=== PATIENT | female | born 1995 | race Caucasian/White ===

== ENCOUNTER 2018-12-27 12:09 | Inpatient (IN) | payer MEDICAID, OTHER ==
[~2018-12-27] VITALS: Ht 154.9 cm; Wt 80.3 kg
[2018-12-27 12:48] VITALS: Ht 154.9 cm; Wt 80.3 kg
[2018-12-27 12:49] VITALS: BP 131/91
[2018-12-27] MEDS ORDERED: PREN1TAB71 PO (12:53)
--- NOTE | 2018-12-27 14:36 | HP ---
Date/Time of Note Date/Time of Note DATE: 12/27/18 TIME: 14:28 OB - History Hx of Present Free Text/Dictation 23 YO G1 with IUP at 25 weeks with EDC 04/09/2019 who was seen at [facility] clinic today. she had BP 135/91. had normal BPs earlier in , but had DBP of 80 previously. she reports both parents are taking medication for hypertension. she reports frequent headaches for the past few months and she blames her work as the cause of her headache. she reports persistent headache since yesterday. she denies visual changes or RUQ pain. she denies UC, LOF per vagina or vaginal bleeding. she reports good FM. Care: Good Care Ultrasounds: Normal mid trimester US Obstetrical Complications: None Medical Complications: None Past Family/Social History * Past Medical, Surgical, Family and Obstetric Histories reviewed from chart. OB Admission Exam Vital Signs Vital Signs Vital Signs Date Temp Pulse Resp B/P (MAP) Pulse Ox O2 O2 Flow FiO2 Time Delivery Rate 12/27/18 98.6 131/91 12:49 (104) Physical Exam HEENT: WNL Heart: Rhythm Normal Lungs: Clear, Equal Abdomen: WNL Extremities: Normal Reflexes: Normal Last 72 hours Lab Results CBC & BMP 12/27/18 13:24 Liver Function Test 12/27/18 13:24 Alanine Aminotransferase (ALT/SGPT) 16 Albumin 4.0 Alkaline Phosphatase 79 Aspartate Amino Transf (AST/SGOT) 25 Direct Bilirubin 0.00 Total Protein 7.5 OB Assessment/Plan Other Assessment: IUP at 25 weeks Elevated BP, needs to be evaluated for possible Preeclampsia Other plan: Dr. Kwan will consult. spoke to Dr. Kwna over the phone. see orders SALLY PALUMBO MD Dec 27, 2018 14:36
[2018-12-27] MEDS ORDERED: LABETALOL HCL 20MG INJ IV PRN (15:00)
[2018-12-27] MEDS ORDERED: LABETALOL HCL 20MG INJ IV ONE (15:00)
--- NOTE | 2018-12-27 15:17 | TRIAGE ---
OB Triage Datetime Report Generated by CPN: 12/27/2018 15:17 Datetime: 12/27/2018 15:05 Time of Arrival: 12/27/2018 11:04 EGA: 25.2 Arrived By: Ambulatory Arrived From: Dr. Office Chief Complaint: SENT FROM DR OFFICE FOR ELEVATED B/P Movement: Present Contractions: Denies/Absent Rupture of Membranes: Denies Vaginal Bleeding: None Vaginal Discharge: Denies Recent Sexual Intercouse: Denies Abdominal Trauma: Not Applicable Patient Complaints: None Time Provider Notified: 12/27/2018 14:30 Provider Notified: DR. PALUMBO Initial Plan: EFM, MARTINA MD Datetime: 12/27/2018 15:04 Heart Rate Comments: PATIENT SITTING IN CHAIR AT BEDSIDE Datetime: 12/27/2018 13:42 Heart Rate Comments: up to br Datetime: 12/27/2018 12:55 Assessment Type: Triage Maternal Assessment Level of Consciousness: Fully Conscious DTR's/Clonus: DTRs 2+; No Clonus Headache: Denies Blurred Vision: No Respiratory Effort: Unlabored; Regular Rhythm; Equal Expansion Breath Sounds, Left: Clear and Equal Breath Sounds, Right: Clear and Equal Nausea/Vomiting: Denies RUQ Epigastric Pain: Denies Lower Extremities Edema: None Degree: None Upper Extremities Edema: None Degree: None Facial Edema: None Fall Risk Assessment History of Falling: (0) No Secondary Diagnosis: (0) No Ambulatory Aid: (0) Bedrest/Nurse Assist IV Therapy: (0) No Gait: (0) Normal/Bedrest/Immobile Mental Status: (0) Oriented to Own Ability Fall Score: 0 Fall Risk Score Definition: No Risk: No action required
[2018-12-27] MEDS ORDERED: BETAMET NA PHOS/AC(6 MG/ML) 5ML INJ IM SCH (15:30)
[2018-12-27] MEDS: LACTATED RINGER'S 1,000 ML IV SCH (17:03)
[2018-12-27] MEDS: BETAMET NA PHOS/AC(6 MG/ML) 2 ML INJ SYG IM SCH (17:05)
[2018-12-28] MEDS: LACTATED RINGER'S 1,000 ML IV SCH ×3 (00:41→17:33)
--- NOTE | 2018-12-28 09:44 | QN ---
Documentation Comment Denies headache, visual changes, RUQ pain, UC, VB, LOF per vagina. reports good FM. BPs normal highest BP 120/85 Abdomen: soft, gravid, not tender Awaiting completion of 24 hour urine, 2nd dose of steroid and consult from SALLY Marcus MD Dec 28, 2018 09:44
[2018-12-28] MEDS: FERROUS SULFATE (EC) 325 MG TAB PO SCH (09:56)
[2018-12-28] MEDS: PRENATAL VITAMIN PO SCH (09:56)
[2018-12-28] MEDS: BETAMET NA PHOS/AC(6 MG/ML) 2 ML INJ SYG IM SCH (17:04)
--- NOTE | 2018-12-29 02:34 | CONS ---
DATE OF ADMISSION: 12/27/2018 DATE OF CONSULTATION: 12/28/2018 HISTORY OF PRESENT ILLNESS: The patient is 23-year-old primigravida at 25 weeks and 3 days, who was admitted yesterday secondary to some elevated blood pressures. In the hospital, her blood pressures have been mostly normal with few moderate range blood pressures. She has at admission had headache. However, she has been experiencing headache on and off throughout the which she attributes to stress of her job; otherwise, no symptoms. PAST MEDICAL HISTORY: Negative. PAST SURGICAL HISTORY: Negative. REVIEW OF SYSTEMS: All systems reviewed and negative except what is mentioned above. Blood pressure is currently 126/53. Physical examination deferred. heart tones are reassuring for the gestational age, very much interrupted and no contractions. LABORATORY VALUES: AST, ALT, creatinine and platelets are normal. UA showed trace protein. A 24-ho ur urine for protein is pending. ASSESSMENT: 1. Primigravida at 25 weeks and 3 days, currently with gestational hypertension, pending the results of the 24-hour urine for protein. 2. Chronic headache, which she attributes to stress of her job and currently, she does not have any headache as she has been staying in the hospital and she looks very relaxed. A 24-hour urine will be ending around 6:00 tonight. RECOMMENDATIONS: In-house management until the results of the 24-hour urine for protein is back. Af ter that if she remains stable, she can be discharged home with BPP weekly until 32 weeks and then tw ice weekly NST. That would be great if she is provided with a note for her job, so she can be on blanche e bed rest at home. Preeclampsia precautions were given. Dictated By: SOTO DANIELLE MD ST/RODNEY Conf#: [id number] DID#: [id number] CC: SALLY PALUMBO MD;*EndCC*
[2018-12-29] MEDS: LACTATED RINGER'S 1,000 ML IV SCH ×2 (03:45→06:47)
[2018-12-29] MEDS: PRENATAL VITAMIN PO SCH (08:46)
[2018-12-29] MEDS: FERROUS SULFATE (EC) 325 MG TAB PO SCH (08:46)
--- NOTE | 2018-12-29 18:21 | DS ---
Date/Time of Note Date/Time of Note DATE: 12/29/18 TIME: 18:15 Discharge Summary Admission/Discharge Info Admit Date/Time Dec 27, 2018 at 14:40 Discharge Date/Time 12/29/2018 Discharge Diagnosis IUP at 25 weeks Proteinuria, 24 hours urine 547 mg protein infrequent elevation in blood pressure Patient Condition: Good Consults Dr. Kwan Hx of Present Illness she had elevated BP at [facility]. she initially had headache, but headache resolved after resting and eating. she remained without headache, visual changes or RUQ pain. had normal labs except for 24 hour urine revealed 547 mg protein. Hospital Course she had elevated BP at [facility]. she initially had headache, but headache resolved after resting and eating. she remained without headache, visual changes or RUQ pain. had normal labs except for 24 hour urine revealed 547 mg protein. note to excuse from work given. PIH precautions d/w pt. Home Meds Reported Medications Vit No.130/Iron/FA ( Tablet) 1 Each Tablet, 1 EACH PO 12/27/18 Follow-up Plan weekly appointment at [facility] with Weekly appointment at L&D for BPP and BP check f/u with perinatologist Dr. Aniya TANG Primary Care Provider [facility] Time spent on discharge: > 30 minutes SALLY PALUMBO MD Dec 29, 2018 18:21
== END 2018-12-29 18:49 | disposition home or self-care (01) | DRG 833 ==
LOC: OBT 12:09 → L-D 12:11 → OBT 14:40 → PP1 16:34
PROVIDERS: ADMIT Specialist; ATTEND Specialist
DX: O26.892 Other specified pregnancy related conditions, second trimester (principal); R03.0 Elevated blood-pressure reading, without diagnosis of hypertension; R51 Headache; Z3A.25 25 weeks gestation of pregnancy
CPT/HCPCS: 76815; 80053; 80307; 81003; 82575; 84156; 84560; 85025; G0463; J0702; J7120

== ENCOUNTER 2019-01-02 09:31 | Outpatient (CLI) | payer OTHER ==
[~2019-01-02] VITALS: Ht 157.5 cm; Wt 80.2 kg
[~2019-01-02 09:31] MED LIST: PREN1TAB71 PO
[2019-01-02 09:40] VITALS: Ht 157.5 cm; Wt 80.2 kg
--- NOTE | 2019-01-02 12:52 | PN ---
Triage Information Date/Time Reason for visit: for PIH panel and R%/o preeclampsia Weeks of Gestation 26+ /Para n/a Diabetes: none Hypertention: none Objective Heart Rate: 140's Contractions: None Results/Medications Result Diagram: 01/02/19 1029 01/02/19 1029 Results 24 hrs Laboratory Tests Test 01/02/19 10:09 01/02/19 10:29 01/02/19 11:53 Urine Color COLORLESS Urine Clarity CLEAR Urine pH 7.0 Urine Specific [place] 1.001 L Urine Ketones NEGATIVE Urine Nitrite NEGATIVE Urine Bilirubin NEGATIVE Urine Urobilinogen NEGATIVE Urine Leukocyte Esterase NEGATIVE Urine Microscopic RBC 0 Urine Microscopic WBC 0 Urine Hemoglobin 2+ H Urine Glucose NEGATIVE Urine Total Protein NEGATIVE White Blood Count 10.9 #H Red Blood Count 3.99 L Hemoglobin 12.6 Hematocrit 36.9 L Mean Corpuscular Volume 92.5 Mean Corpuscular Hemoglobin 31.6 Mean Corpuscular Hemoglobin Concent 34.1 Red Cell Distribution Width 12.2 Platelet Count 254 Mean Platelet Volume 9.6 Immature Granulocytes % 3.200 H Neutrophils % 73.1 Lymphocytes % 16.1 Monocytes % 7.0 Eosinophils % 0.2 Basophils % 0.4 Nucleated Red Blood Cells % 0.0 Immature Granulocytes # 0.350 H Neutrophils # 7.9 H Lymphocytes # 1.8 Monocytes # 0.8 Eosinophils # 0.0 Basophils # 0.0 Nucleated Red Blood Cells # 0.0 Prothrombin Time 11.9 Prothrombin Time Ratio 0.9 INR International Normalized Ratio 0.87 Activated Partial Thromboplast Time 25.2 Sodium Level 138 Potassium Level 4.5 Chloride Level 102 Carbon Dioxide Level 27 Anion Gap 9 Blood Urea Nitrogen 8 Creatinine 0.39 L Est Glomerular Filtrat Rate mL/min > 60 Glucose Level 79 Uric Acid 2.7 L Calcium Level 9.1 Total Bilirubin 0.1 L Direct Bilirubin 0.00 Indirect Bilirubin 0.1 Aspartate Amino Transf (AST/SGOT) 16 Alanine Aminotransferase (ALT/SGPT) 12 L Alkaline Phosphatase 69 Total Protein 7.2 Albumin 3.8 Globulin 3.40 H Albumin/Globulin Ratio 1.11 Fibronectin NEGATIVE Disposition: Discharge Assessment/Plan Urine culture sent No urinary symptoms PIH panel reviewed Blood pressures WNL Questions answered Precautions discussed Follow up with provider SILVIA WOODWARD M.D. Jan 02, 2019 12:52
== END 2019-01-02 12:50 | disposition home or self-care (01) ==
LOC: L-D 09:31 → OBT 09:31
PROVIDERS: ATTEND Specialist
DX: O13.2 Gestational [pregnancy-induced] hypertension without significant proteinuria, second trimester (principal); Z3A.26 26 weeks gestation of pregnancy
CPT/HCPCS: 76815; 76817; 80053; 81001; 82731; 84560; 85025; 85610; 85730; Z7500; G0463

== ENCOUNTER 2019-01-08 10:26 | Outpatient (CLI) | payer OTHER ==
[~2019-01-08] VITALS: Ht 157.5 cm; Wt 80.7 kg
[2019-01-08 10:35] VITALS: Ht 157.5 cm; Wt 80.7 kg
[2019-01-08 10:36] VITALS: BP 125/81; PULSE 98; RESP 17
--- NOTE | 2019-01-08 14:24 | HP ---
Date/Time of Note Date/Time of Note DATE: 01/08/19 TIME: 14:17 OB - History Hx of Present Free Text/Dictation 23 YO G1 with IUP at 27 weeks. she is here for f/u on preeclampsia without severe features. she denies headache, visual changes or RUQ pain at this time, but she reports she has headaches every week which resolves with just resting. she reports good FM. She denies loss of fluid per vagina or vaginal bleeding or UCs. she was seen in L&D about 2 weeks ago and she was evaluated by Dr. Kwan. the plan is weekly BPP and labs until 32 weeks. she is aware of PIH precautions. Care: Good Care Ultrasounds: Normal mid trimester US Obstetrical Complications: None Medical Complications: None Past Family/Social History * Past Medical, Surgical, Family and Obstetric Histories reviewed from chart. OB Admission Exam Vital Signs Vital Signs Vital Signs Date Temp Pulse Resp B/P (MAP) Pulse Ox O2 O2 Flow FiO2 Time Delivery Rate 01/08/19 98.1 98 17 125/81 Room Air 10:36 (96) Physical Exam HEENT: WNL Heart: Rhythm Normal Lungs: Clear, Equal Abdomen: WNL Extremities: Normal Reflexes: Normal Last 72 hours Lab Results CBC & BMP 01/08/19 10:51 Liver Function Test 01/08/19 10:51 Alanine Aminotransferase (ALT/SGPT) 10 L Albumin 3.6 Alkaline Phosphatase 70 Aspartate Amino Transf (AST/SGOT) 17 Direct Bilirubin 0.00 Total Protein 6.8 OB Assessment/Plan Other Assessment: IUP at 27 weeks Mild Preeclampsia Other plan: february d/c home and return in one week SALLY PALUMBO MD Jan 08, 2019 14:24
== END 2019-01-08 14:35 | disposition home or self-care (01) ==
LOC: L-D 10:26 → OBT 10:26
PROVIDERS: ATTEND Specialist
DX: O14.92 Unspecified pre-eclampsia, second trimester (principal); Z3A.27 27 weeks gestation of pregnancy
CPT/HCPCS: 76818; 80053; 81001; 84560; 85025; 85384; 85610; 85730; Z7500; G0463

== ENCOUNTER 2019-02-23 10:50 | Outpatient (CLI) | payer OTHER ==
[~2019-02-23] VITALS: Ht 154.9 cm; Wt 88.3 kg
[2019-02-23 11:18] VITALS: BP 130/76; PULSE 102; RESP 18; Ht 154.9 cm; Wt 88.3 kg
--- NOTE | 2019-02-23 14:30 | HP ---
Date/Time of Note Date/Time of Note DATE: 02/23/19 TIME: 14:26 OB - History Hx of Present Free Text/Dictation 23 YO G1 with IUP at 33.4 weeks with Preeclampsia. she desires outpatient management. today in NST office she reported visual changes that happened for few seconds 3 days ago and not since then. At this time she denies headache, visual changes or RUQ. 3 days ago she was spots for 3 seconds one time only. she denies UC, LOF per vagina or vaginal bleeding. she reports good FM. PIH labs are normal. Care: Good Care Ultrasounds: Normal mid trimester US Obstetrical Complications: Pre-eclampsia Medical Complications: None Past Family/Social History * Past Medical, Surgical, Family and Obstetric Histories reviewed from chart. OB Admission Exam Vital Signs Vital Signs Vital Signs Date Temp Pulse Resp B/P (MAP) Pulse Ox O2 O2 Flow FiO2 Time Delivery Rate 02/23/19 98.3 102 18 130/76 11:18 (94) Physical Exam HEENT: WNL Heart: Rhythm Normal Lungs: Clear, Equal Abdomen: WNL Extremities: Normal Reflexes: Normal Last 72 hours Lab Results CBC & BMP 02/23/19 12:20 Liver Function Test 02/23/19 12:20 Alanine Aminotransferase (ALT/SGPT) 8 L Albumin 3.6 Alkaline Phosphatase 120 Aspartate Amino Transf (AST/SGOT) 19 Direct Bilirubin 0.00 Total Protein 6.8 OB Assessment/Plan Other Assessment: IUP at 33.4 week, Preeclampsia Other plan: continue with outpatient management SALLY PALUMBO MD February 23, 2019 14:30
--- NOTE | 2019-02-23 17:11 | TRIAGE ---
OB Triage Datetime Report Generated by CPN: 02/23/2019 17:10 Datetime: 02/23/2019 13:33 Stage of : OB Triage Datetime: 02/23/2019 13:31 Stage of : OB Triage Datetime: 02/23/2019 12:53 Labor Evaluation Frequency: 0 Monitor Mode: External Pattern: Normal: <= 5 Contractions in 10 Minutes Resting Tone [place]: Relaxed Heart Rate FHR Baseline Rate: 145 Monitor Mode: External US Variability: Moderate 6-25 bpm Accelerations: 10X10 Decelerations: None Category: Category I Pain Assessment Pain Scale: 0 Pain Presence: None/Denies Pain Type: N/A Pain Goal: 3 Pain Relief Measures: Comfort Measures Datetime: 02/23/2019 12:28 Labor Evaluation Frequency: 0 Monitor Mode: External Pattern: Normal: <= 5 Contractions in 10 Minutes Resting Tone [place]: Relaxed Heart Rate FHR Baseline Rate: 155 Monitor Mode: External US Variability: Moderate 6-25 bpm Decelerations: None Category: Category I Pain Assessment Pain Scale: 0 Pain Presence: None/Denies Pain Type: N/A Pain Goal: 3 Pain Relief Measures: Comfort Measures Datetime: 02/23/2019 11:42 Labor Evaluation Frequency: 0 Monitor Mode: External Pattern: Normal: <= 5 Contractions in 10 Minutes Resting Tone [place]: Relaxed Heart Rate FHR Baseline Rate: 155 Monitor Mode: External US Variability: Moderate 6-25 bpm Accelerations: 10X10 Decelerations: None Pain Assessment Pain Scale: 0 Pain Presence: None/Denies Pain Type: N/A Pain Goal: 3 Pain Relief Measures: Comfort Measures Datetime: 02/23/2019 11:24 Stage of : OB Triage Datetime: 02/23/2019 11:14 Stage of : OB Triage Assessment Type: Triage Maternal Assessment Level of Consciousness: Fully Conscious DTR's/Clonus: DTRs 2+; No Clonus Headache: Denies Blurred Vision: No Respiratory Effort: Unlabored; Regular Rhythm; Equal Expansion Breath Sounds, Left: Clear and Equal Breath Sounds, Right: Clear and Equal Nausea/Vomiting: Denies RUQ Epigastric Pain: Denies Facial Edema: None Temperature Route: Axillary Fall Risk Assessment History of Falling: (0) No Secondary Diagnosis: (0) No Ambulatory Aid: (0) Bedrest/Nurse Assist IV Therapy: (0) No Gait: (0) Normal/Bedrest/Immobile Mental Status: (0) Oriented to Own Ability Fall Score: 0 Fall Risk Score Definition: No Risk: No action required Labor Evaluation Frequency: 0 Monitor Mode: External Pattern: Normal: <= 5 Contractions in 10 Minutes Resting Tone [place]: Relaxed Heart Rate FHR Baseline Rate: 150 Monitor Mode: External US Variability: Moderate 6-25 bpm Decelerations: None Category: Category I Pain Assessment Pain Scale: 0 Pain Presence: None/Denies Pain Type: N/A Pain Goal: 3 Pain Relief Measures: Comfort Measures Datetime: 02/23/2019 11:12 Time of Arrival: 02/23/2019 10:46 EGA: 33.4 Arrived By: Ambulatory Arrived From: Home Chief Complaint: SENT FROM NST FROM VISUAL DISTURBANCES, DENIES H/A, BLURRY VISION, OR EPIGASTRIC P AIN. DENIES LEAKING, BLEEDING OR UC'S Movement: Present Contractions: Denies/Absent Rupture of Membranes: Denies Vaginal Bleeding: None Vaginal Discharge: Denies Recent Sexual Intercouse: Denies Abdominal Trauma: Not Applicable Patient Complaints: Visual Disturbance Time Provider Notified: 02/23/2019 11:24 Provider Notified: LINWOOD Initial Plan: MONITOR, PIH PANEL Datetime: 02/23/2019 10:59 EGA: 27.0 Datetime: 01/08/2019 14:12 Stage of : OB Triage Datetime: 01/08/2019 13:22 Stage of : OB Triage Labor Evaluation Frequency: 0 Monitor Mode: External Pattern: Normal: <= 5 Contractions in 10 Minutes Resting Tone [place]: Relaxed Heart Rate FHR Baseline Rate: 145 Monitor Mode: External US Variability: Moderate 6-25 bpm Accelerations: 15X15 Decelerations: None Category: Category I Datetime: 01/08/2019 12:35 Stage of : OB Triage Labor Evaluation Frequency: 0 Monitor Mode: External Pattern: Normal: <= 5 Contractions in 10 Minutes Resting Tone [place]: Relaxed Heart Rate FHR Baseline Rate: 145 Monitor Mode: External US Variability: Moderate 6-25 bpm Accelerations: 15X15 Decelerations: None Category: Category I Datetime: 01/08/2019 10:34 Maternal Assessment Level of Consciousness: Fully Conscious DTR's/Clonus: DTRs 2+; No Clonus Headache: Denies Blurred Vision: No Respiratory Effort: Unlabored; Regular Rhythm; Equal Expansion Breath Sounds, Left: Clear and Equal Breath Sounds, Right: Clear and Equal Nausea/Vomiting: Denies RUQ Epigastric Pain: Denies Facial Edema: None Temperature Route: Axillary Fall Risk Assessment History of Falling: (0) No Secondary Diagnosis: (0) No Ambulatory Aid: (0) Bedrest/Nurse Assist IV Therapy: (0) No Gait: (0) Normal/Bedrest/Immobile Mental Status: (0) Oriented to Own Ability Fall Score: 0 Fall Risk Score Definition: No Risk: No action required Datetime: 01/08/2019 10:33 Time of Arrival: 01/08/2019 10:34 EGA: 27.0 Arrived By: Ambulatory Arrived From: Home Chief Complaint: pih labs Movement: Present Contractions: Denies/Absent Rupture of Membranes: Denies Vaginal Bleeding: None Vaginal Discharge: Denies Recent Sexual Intercouse: Denies Abdominal Trauma: Not Applicable Patient Complaints: Other Time Provider Notified: 01/08/2019 13:20 Provider Notified: DR. PALUMBO Initial Plan: call MD, MONITORS APPLIED Datetime: 01/08/2019 10:32 Comments: MONITORS APPLIED Datetime: 01/02/2019 12:20 Stage of : OB Triage Maternal Assessment Level of Consciousness: Fully Conscious DTR's/Clonus: DTRs 1+ Headache: Denies Breath Sounds, Left: Clear and Equal Breath Sounds, Right: Clear and Equal Nausea/Vomiting: Denies RUQ Epigastric Pain: Denies Labor Evaluation Frequency: NONE Monitor Mode: External Resting Tone [place]: Relaxed Heart Rate FHR Baseline Rate: 145 Monitor Mode: External US Variability: Moderate 6-25 bpm Accelerations: 15X15 Decelerations: None Category: Category I Pain Assessment Pain Scale: 0 Pain Presence: None/Denies Pain Type: N/A Pain Goal: 3 Datetime: 01/02/2019 12:00 Stage of : OB Triage Maternal Assessment Level of Consciousness: Fully Conscious DTR's/Clonus: DTRs 1+ Headache: Denies Breath Sounds, Left: Clear and Equal Breath Sounds, Right: Clear and Equal Nausea/Vomiting: Denies RUQ Epigastric Pain: Denies Labor Evaluation Frequency: NONE Monitor Mode: External Resting Tone [place]: Relaxed Heart Rate FHR Baseline Rate: 145 Monitor Mode: External US Variability: Moderate 6-25 bpm Accelerations: 15X15 Decelerations: None Category: Category I Pain Assessment Pain Scale: 0 Pain Presence: None/Denies Pain Type: N/A Pain Goal: 3 Datetime: 01/02/2019 11:00 Stage of : OB Triage Maternal Assessment Level of Consciousness: Fully Conscious DTR's/Clonus: DTRs 1+ Headache: Denies Breath Sounds, Left: Clear and Equal Breath Sounds, Right: Clear and Equal Nausea/Vomiting: Denies RUQ Epigastric Pain: Denies Labor Evaluation Frequency: NONE Monitor Mode: External Resting Tone [place]: Relaxed Heart Rate FHR Baseline Rate: 145 Monitor Mode: External US Variability: Moderate 6-25 bpm Accelerations: 15X15 Decelerations: None Pain Assessment Pain Scale: 0 Pain Presence: None/Denies Pain Type: N/A Pain Goal: 3 Datetime: 01/02/2019 10:30 Maternal Assessment Level of Consciousness: Fully Conscious DTR's/Clonus: DTRs 1+ Headache: Denies Blurred Vision: No Respiratory Effort: Unlabored Breath Sounds, Left: Clear and Equal Breath Sounds, Right: Clear and Equal Nausea/Vomiting: Denies RUQ Epigastric Pain: Denies Facial Edema: None Labor Evaluation Frequency: NONE Monitor Mode: External Resting Tone [place]: Relaxed Heart Rate FHR Baseline Rate: 145 Monitor Mode: External US Variability: Moderate 6-25 bpm Accelerations: 15X15 Decelerations: None Category: Category I Pain Assessment Pain Scale: 0 Pain Presence: None/Denies Pain Type: N/A Pain Goal: 3 Datetime: 01/02/2019 09:35 Assessment Type: Triage Maternal Assessment Level of Consciousness: Fully Conscious DTR's/Clonus: DTRs 2+; No Clonus Headache: Denies Blurred Vision: No Respiratory Effort: Unlabored; Regular Rhythm; Equal Expansion Breath Sounds, Left: Clear and Equal Breath Sounds, Right: Clear and Equal Nausea/Vomiting: Denies RUQ Epigastric Pain: Denies Lower Extremities Edema: None Degree: None Upper Extremities Edema: None Degree: None Facial Edema: None Fall Risk Assessment History of Falling: (0) No Secondary Diagnosis: (0) No Ambulatory Aid: (0) Bedrest/Nurse Assist IV Therapy: (0) No Gait: (0) Normal/Bedrest/Immobile Mental Status: (0) Oriented to Own Ability Fall Score: 0 Fall Risk Score Definition: No Risk: No action required Datetime: 01/02/2019 09:23 Time of Arrival: 01/02/2019 09:23 EGA: 26.1 Arrived By: Ambulatory Arrived From: Home Chief Complaint: PT CAME IN FOR NST AND BPP FOR PREECLAMPSIA AND STATES THAT SHE WAS SPOTTING TODAY THIS AM PINK BLOOD Movement: Present Contractions: Denies/Absent Rupture of Membranes: Denies Vaginal Bleeding: None Vaginal Discharge: Denies Recent Sexual Intercouse: Denies Abdominal Trauma: Not Applicable Patient Complaints: Other Additional Patient Complaints: NONE Initial Plan: NST AND BPP Datetime: 12/29/2018 16:35 Stage of : Antepartum Maternal Assessment Level of Consciousness: Fully Conscious Headache: Denies Blurred Vision: No Respiratory Effort: Unlabored Nausea/Vomiting: Denies Resting Tone [place]: Relaxed Pain Presence: None/Denies Datetime: 12/29/2018 16:28 Maternal Assessment Level of Consciousness: Fully Conscious Headache: Denies Blurred Vision: No Respiratory Effort: Unlabored Nausea/Vomiting: Denies Pain Presence: None/Denies Datetime: 12/29/2018 16:27 Monitor Mode: External US Datetime: 12/29/2018 16:01 Stage of : Antepartum Maternal Assessment Level of Consciousness: Fully Conscious Headache: Denies Nausea/Vomiting: Denies RUQ Epigastric Pain: Denies Labor Evaluation Frequency: 0/hr Monitor Mode: External Heart Rate FHR Baseline Rate: 155 Monitor Mode: External US Variability: Moderate 6-25 bpm Accelerations: 10X10 Decelerations: None (Annotations: none in this hour last decel [id number]) Pain Assessment Pain Scale: 0 Pain Presence: None/Denies Vaginal Bleeding: None Datetime: 12/29/2018 15:59 Heart Rate FHR Baseline Rate: 155 Monitor Mode: External US Variability: Moderate 6-25 bpm Datetime: 12/29/2018 15:57 Maternal Assessment Level of Consciousness: Fully Conscious Headache: Denies Blurred Vision: No Respiratory Effort: Unlabored Nausea/Vomiting: Denies RUQ Epigastric Pain: Denies Pain Presence: None/Denies Datetime: 12/29/2018 15:25 Labor Evaluation Frequency: 0/hr Monitor Mode: External Heart Rate FHR Baseline Rate: 150 Variability: Moderate 6-25 bpm Datetime: 12/29/2018 15:13 Maternal Assessment Level of Consciousness: Fully Conscious Headache: Denies Blurred Vision: No Respiratory Effort: Unlabored Nausea/Vomiting: Denies RUQ Epigastric Pain: Denies Monitor Mode: External Resting Tone [place]: Relaxed Monitor Mode: External US Datetime: 12/29/2018 14:49 Heart Rate FHR Baseline Rate: 150 Monitor Mode: External US Variability: Moderate 6-25 bpm Decelerations: Variable Datetime: 12/29/2018 14:47 Stage of : Antepartum Temperature Route: Oral Datetime: 12/29/2018 14:46 Maternal Assessment Level of Consciousness: Fully Conscious Headache: Denies Blurred Vision: No Respiratory Effort: Unlabored Nausea/Vomiting: Denies RUQ Epigastric Pain: Denies Resting Tone [place]: Relaxed Pain Presence: None/Denies Datetime: 12/29/2018 14:22 Comments: pt. standing at bedside and denies any distress at this time. pt. denies any S_S of preec lampsia at this time. Pain Presence: None/Denies Datetime: 12/29/2018 14:03 Stage of : Antepartum Labor Evaluation Frequency: 0/hr Monitor Mode: External Resting Tone [place]: Relaxed Heart Rate FHR Baseline Rate: 145 Monitor Mode: External US Variability: Moderate 6-25 bpm Accelerations: 10X10 Decelerations: None Datetime: 12/29/2018 13:31 Monitor Mode: External Resting Tone [place]: Relaxed Datetime: 12/29/2018 13:01 Comments: loss of contact. pt. sitting up for lunch. pt. denies any S_S of preecalmpsia or ptl Datetime: 12/29/2018 13:00 Stage of : Antepartum Labor Evaluation Frequency: 0/hr Monitor Mode: External Resting Tone [place]: Relaxed Heart Rate FHR Baseline Rate: 150 Monitor Mode: External US Variability: Moderate 6-25 bpm Decelerations: None Datetime: 12/29/2018 11:44 Resting Tone [place]: Relaxed Pain Presence: None/Denies Datetime: 12/29/2018 11:29 Stage of : Antepartum Maternal Assessment Level of Consciousness: Fully Conscious Headache: Denies Nausea/Vomiting: Denies RUQ Epigastric Pain: Denies Resting Tone [place]: Relaxed Pain Assessment Pain Scale: 0 Pain Presence: None/Denies Vaginal Exam Membrane Status: Intact Vaginal Bleeding: None Datetime: 12/29/2018 10:59 Labor Evaluation Frequency: 0/hr Monitor Mode: External Resting Tone [place]: Relaxed Heart Rate FHR Baseline Rate: 150 Monitor Mode: External US Variability: Moderate 6-25 bpm Accelerations: 15X15 Decelerations: None Datetime: 12/29/2018 10:31 Resting Tone [place]: Relaxed Monitor Mode: External US Comments: ega 25.4 Datetime: 12/29/2018 10:22 Stage of : Antepartum Maternal Assessment Level of Consciousness: Fully Conscious Headache: Generalized (Annotations: pain 1/10. pt. states the smell of the mint tea is effective at time) Labor Evaluation Frequency: 0/hr Monitor Mode: External Heart Rate FHR Baseline Rate: 145 Monitor Mode: External US Variability: Moderate 6-25 bpm Vaginal Exam Membrane Status: Intact Vaginal Bleeding: None Datetime: 12/29/2018 10:16 Pain Presence: Constant Pain Type: Dull Pain Location: Head Pain Relief Measures: Comfort Measures Pain Assessment Comments: mint tea given Datetime: 12/29/2018 09:16 Stage of : Antepartum Labor Evaluation Frequency: 0 Monitor Mode: External Heart Rate FHR Baseline Rate: 135 Monitor Mode: External US Variability: Moderate 6-25 bpm Accelerations: 10X10 Decelerations: None Datetime: 12/29/2018 08:47 Maternal Assessment Level of Consciousness: Fully Conscious Headache: Denies Blurred Vision: No Respiratory Effort: Unlabored Breath Sounds, Left: Clear and Equal Breath Sounds, Right: Clear and Equal Nausea/Vomiting: Denies RUQ Epigastric Pain: Denies Pain Presence: None/Denies Datetime: 12/29/2018 08:18 Stage of : Antepartum Maternal Assessment Level of Consciousness: Fully Conscious Headache: Denies (Annotations: pt. has hx. of h.a. but states it is resolved at this time) Nausea/Vomiting: Denies RUQ Epigastric Pain: Denies Temperature Route: Oral Resting Tone [place]: Relaxed Pain Assessment Pain Scale: 0 Vaginal Exam Membrane Status: Intact Vaginal Bleeding: None Datetime: 12/29/2018 07:37 Labor Evaluation Frequency: 0 Monitor Mode: External Heart Rate FHR Baseline Rate: 130 Monitor Mode: External US Variability: Moderate 6-25 bpm Accelerations: 15X15 Decelerations: None Comments: ega 25.4 today Datetime: 12/29/2018 07:22 Stage of : Antepartum Maternal Assessment Level of Consciousness: Fully Conscious Headache: Denies Blurred Vision: No Respiratory Effort: Unlabored Nausea/Vomiting: Denies RUQ Epigastric Pain: Denies Pain Presence: None/Denies Datetime: 12/29/2018 07:00 Labor Evaluation Frequency: NONE Monitor Mode: External Resting Tone [place]: Relaxed Heart Rate FHR Baseline Rate: 130 Monitor Mode: External US Variability: Moderate 6-25 bpm Accelerations: 15X15 Decelerations: None Category: Category I Pain Presence: None/Denies Pain Type: N/A Datetime: 12/29/2018 05:00 Labor Evaluation Frequency: NONE Monitor Mode: External Resting Tone [place]: Relaxed Heart Rate FHR Baseline Rate: 130 Monitor Mode: External US Variability: Moderate 6-25 bpm Accelerations: 15X15 Decelerations: Variable Comments: AGA Pain Presence: None/Denies Pain Type: N/A Datetime: 12/29/2018 04:00 Labor Evaluation Frequency: NONE Monitor Mode: External Resting Tone [place]: Relaxed Heart Rate FHR Baseline Rate: 125 Monitor Mode: External US Variability: Moderate 6-25 bpm Accelerations: 15X15 Decelerations: None Category: Category I Pain Presence: None/Denies Pain Type: N/A Datetime: 12/29/2018 03:47 Monitor Mode: External US Datetime: 12/29/2018 03:45 Stage of : Antepartum Datetime: 12/29/2018 03:00 Labor Evaluation Frequency: NONE Monitor Mode: External Resting Tone [place]: Relaxed Heart Rate FHR Baseline Rate: 125 Monitor Mode: External US Variability: Moderate 6-25 bpm Accelerations: 15X15 Decelerations: None Category: Category I Datetime: 12/29/2018 02:00 Heart Rate FHR Baseline Rate: 130 Variability: Moderate 6-25 bpm Comments: LOC WITH PT STILL SLEEPING ON HER RIGHT SIDE. Pain Presence: None/Denies Pain Type: N/A Datetime: 12/29/2018 01:04 Monitor Mode: External US Datetime: 12/29/2018 01:00 Heart Rate FHR Baseline Rate: 130 Variability: Moderate 6-25 bpm Comments: LOC WITH PT SLEEPING ON HER RIGHT SIDE. Datetime: 12/29/2018 00:00 Maternal Assessment Level of Consciousness: Fully Conscious DTR's/Clonus: DTRs 2+; No Clonus Headache: Denies Blurred Vision: Yes RUQ Epigastric Pain: Denies Monitor Mode: External Resting Tone [place]: Relaxed Heart Rate FHR Baseline Rate: 130 Monitor Mode: External US Variability: Moderate 6-25 bpm Accelerations: 15X15 Decelerations: None Category: Category I Pain Presence: None/Denies Pain Type: N/A Datetime: 12/28/2018 23:00 Labor Evaluation Frequency: NONE Monitor Mode: External Resting Tone [place]: Relaxed Variability: Moderate 6-25 bpm Comments: LOC DUE TO PT SITTING UP VISITING WITH HER ROOMATE Pain Presence: None/Denies Pain Type: N/A Datetime: 12/28/2018 22:00 Maternal Assessment Level of Consciousness: Fully Conscious Headache: Denies Blurred Vision: Yes RUQ Epigastric Pain: Denies Labor Evaluation Frequency: NONE Monitor Mode: External Resting Tone [place]: Relaxed Heart Rate FHR Baseline Rate: 130 Monitor Mode: External US Variability: Moderate 6-25 bpm Accelerations: 15X15 Decelerations: None Category: Category I Pain Presence: None/Denies Pain Type: N/A Datetime: 12/28/2018 21:00 Labor Evaluation Frequency: NONE Monitor Mode: External Resting Tone [place]: Relaxed Heart Rate FHR Baseline Rate: 150 Monitor Mode: External US Variability: Moderate 6-25 bpm Accelerations: 15X15 Decelerations: None Category: Category I Pain Presence: None/Denies Pain Type: N/A Datetime: 12/28/2018 20:00 Labor Evaluation Frequency: NONE Monitor Mode: External Resting Tone [place]: Relaxed Heart Rate FHR Baseline Rate: 140 Monitor Mode: External US Variability: Moderate 6-25 bpm Accelerations: 15X15 Decelerations: None Category: Category I Pain Presence: None/Denies Pain Type: N/A Datetime: 12/28/2018 19:22 Stage of : Antepartum Assessment Type: Ongoing Assessment Maternal Assessment Level of Consciousness: Fully Conscious DTR's/Clonus: DTRs 2+; No Clonus Headache: Denies Blurred Vision: No Respiratory Effort: Unlabored; Regular Rhythm; Equal Expansion Breath Sounds, Left: Clear and Equal Breath Sounds, Right: Clear and Equal Nausea/Vomiting: Denies RUQ Epigastric Pain: Denies Lower Extremities Edema: None Degree: None Upper Extremities Edema: None Degree: None Facial Edema: None Temperature Route: Oral Fall Risk Assessment History of Falling: (0) No Secondary Diagnosis: (0) No Ambulatory Aid: (0) Bedrest/Nurse Assist IV Therapy: (0) No Gait: (0) Normal/Bedrest/Immobile Mental Status: (0) Oriented to Own Ability Fall Score: 0 Fall Risk Score Definition: No Risk: No action required Monitor Mode: External Contraction Comments: PT STATES + FM Monitor Mode: External US Comments: PT DENIES CRAMPING Pain Presence: None/Denies Pain Type: N/A Vaginal Exam Membrane Status: Intact Vaginal Bleeding: None Datetime: 12/28/2018 18:31 Labor Evaluation Frequency: 0 Monitor Mode: External Pattern: Normal: <= 5 Contractions in 10 Minutes Resting Tone [place]: Relaxed Heart Rate FHR Baseline Rate: 135 Monitor Mode: External US FHR Baseline Changes: No Baseline Change Variability: Moderate 6-25 bpm Accelerations: 10X10 Decelerations: None Category: Category I Datetime: 12/28/2018 18:00 Labor Evaluation Frequency: 0 Monitor Mode: External Pattern: Normal: <= 5 Contractions in 10 Minutes Resting Tone [place]: Relaxed Heart Rate FHR Baseline Rate: 135 Monitor Mode: External US FHR Baseline Changes: No Baseline Change Variability: Moderate 6-25 bpm Accelerations: 10X10 Decelerations: None Category: Category I Datetime: 12/28/2018 17:30 Labor Evaluation Frequency: 0 Monitor Mode: External Pattern: Normal: <= 5 Contractions in 10 Minutes Resting Tone [place]: Relaxed Heart Rate FHR Baseline Rate: 135 Monitor Mode: External US FHR Baseline Changes: No Baseline Change Variability: Moderate 6-25 bpm Accelerations: 10X10 Decelerations: None Category: Category I Datetime: 12/28/2018 16:24 Stage of : Antepartum Temperature Route: Oral Pain Assessment Pain Scale: 0 Pain Presence: None/Denies Pain Goal: 0 Datetime: 12/28/2018 16:23 Labor Evaluation Frequency: 0 Monitor Mode: External Pattern: Normal: <= 5 Contractions in 10 Minutes Resting Tone [place]: Relaxed Heart Rate FHR Baseline Rate: 140 Monitor Mode: External US FHR Baseline Changes: No Baseline Change Variability: Moderate 6-25 bpm Accelerations: 10X10 Decelerations: None Category: Category I Datetime: 12/28/2018 16:00 Stage of : Antepartum Monitor Mode: External Heart Rate FHR Baseline Rate: 150 Monitor Mode: External US Datetime: 12/28/2018 15:00 Labor Evaluation Frequency: 0 Monitor Mode: External Pattern: Normal: <= 5 Contractions in 10 Minutes Resting Tone [place]: Relaxed Heart Rate FHR Baseline Rate: 140 FHR Baseline Changes: No Baseline Change Variability: Moderate 6-25 bpm Accelerations: 10X10 Decelerations: None Category: Category I Datetime: 12/28/2018 14:00 Labor Evaluation Frequency: 0 Monitor Mode: External Pattern: Normal: <= 5 Contractions in 10 Minutes Resting Tone [place]: Relaxed Heart Rate FHR Baseline Rate: 140 Monitor Mode: External US FHR Baseline Changes: No Baseline Change Variability: Moderate 6-25 bpm Accelerations: 15X15 Decelerations: None Category: Category I Datetime: 12/28/2018 11:38 Labor Evaluation Frequency: 0 Monitor Mode: External Pattern: Normal: <= 5 Contractions in 10 Minutes Resting Tone [place]: Relaxed Heart Rate FHR Baseline Rate: 140 Monitor Mode: External US FHR Baseline Changes: No Baseline Change Variability: Moderate 6-25 bpm Accelerations: 10X10 Decelerations: None Datetime: 12/28/2018 11:34 Stage of : Antepartum Temperature Route: Oral Pain Assessment Pain Scale: 0 Pain Presence: None/Denies Pain Goal: 0 Datetime: 12/28/2018 11:03 Labor Evaluation Frequency: 0 Monitor Mode: External Pattern: Normal: <= 5 Contractions in 10 Minutes Resting Tone [place]: Relaxed Heart Rate FHR Baseline Rate: 140 Monitor Mode: External US FHR Baseline Changes: No Baseline Change Variability: Moderate 6-25 bpm Accelerations: 10X10 Decelerations: None Category: Category I Datetime: 12/28/2018 10:07 Labor Evaluation Frequency: 0 Monitor Mode: External Pattern: Normal: <= 5 Contractions in 10 Minutes Resting Tone [place]: Relaxed Heart Rate FHR Baseline Rate: 140 Monitor Mode: External US FHR Baseline Changes: No Baseline Change Variability: Moderate 6-25 bpm Accelerations: 10X10 Decelerations: None Datetime: 12/28/2018 09:00 Labor Evaluation Frequency: 0 Monitor Mode: External Pattern: Normal: <= 5 Contractions in 10 Minutes Resting Tone [place]: Relaxed Heart Rate FHR Baseline Rate: 140 Monitor Mode: External US FHR Baseline Changes: No Baseline Change Variability: Moderate 6-25 bpm Accelerations: 10X10 Decelerations: None Category: Category I Datetime: 12/28/2018 08:00 Labor Evaluation Frequency: 0 Monitor Mode: External Pattern: Normal: <= 5 Contractions in 10 Minutes Resting Tone [place]: Relaxed Heart Rate FHR Baseline Rate: 140 Monitor Mode: External US FHR Baseline Changes: No Baseline Change Variability: Moderate 6-25 bpm Accelerations: 15X15 Decelerations: None Category: Category I Datetime: 12/28/2018 07:33 Assessment Type: Ongoing Assessment Maternal Assessment Level of Consciousness: Fully Conscious DTR's/Clonus: DTRs 2+; No Clonus Headache: Denies Blurred Vision: No Respiratory Effort: Unlabored; Regular Rhythm; Equal Expansion Breath Sounds, Left: Clear and Equal Breath Sounds, Right: Clear and Equal Nausea/Vomiting: Denies RUQ Epigastric Pain: Denies Lower Extremities Edema: None Degree: None Upper Extremities Edema: None Degree: None Facial Edema: None Fall Risk Assessment History of Falling: (0) No Secondary Diagnosis: (0) No Ambulatory Aid: (0) Bedrest/Nurse Assist IV Therapy: (20) Yes Gait: (0) Normal/Bedrest/Immobile Mental Status: (0) Oriented to Own Ability Fall Score: 20 Fall Risk Score Definition: No Risk: No action required Datetime: 12/28/2018 07:29 Stage of : Antepartum Temperature Route: Oral Pain Assessment Pain Scale: 0 Pain Presence: None/Denies Pain Goal: 0 Datetime: 12/28/2018 07:00 Stage of : Antepartum Labor Evaluation Frequency: NONE Monitor Mode: External Comments: LOC DUE TO PT SLEEPING ON HER LEFT SIDE Pain Presence: None/Denies Pain Type: N/A Datetime: 12/28/2018 06:39 Stage of : Antepartum Datetime: 12/28/2018 06:00 Labor Evaluation Frequency: NONE Monitor Mode: External Resting Tone [place]: Relaxed Heart Rate FHR Baseline Rate: 120 Monitor Mode: External US Variability: Moderate 6-25 bpm Accelerations: 10X10 Decelerations: Variable Comments: AGA Pain Presence: None/Denies Pain Type: N/A Datetime: 12/28/2018 05:00 Labor Evaluation Frequency: NONE Monitor Mode: External Resting Tone [place]: Relaxed Variability: Moderate 6-25 bpm Comments: LOC DUE TO ACTIVE FETUS Pain Presence: None/Denies Pain Type: N/A Datetime: 12/28/2018 04:59 Monitor Mode: External US Datetime: 12/28/2018 04:00 Labor Evaluation Frequency: NONE Monitor Mode: External Resting Tone [place]: Relaxed Heart Rate FHR Baseline Rate: 120 Monitor Mode: External US Variability: Moderate 6-25 bpm Accelerations: 15X15 Decelerations: None Category: Category I Pain Presence: None/Denies Pain Type: N/A Datetime: 12/28/2018 03:00 Labor Evaluation Frequency: NONE Resting Tone [place]: Relaxed Heart Rate FHR Baseline Rate: 125 Monitor Mode: External US Variability: Moderate 6-25 bpm Accelerations: 15X15 Decelerations: Variable Comments: AGA Datetime: 12/28/2018 02:16 Monitor Mode: External US Datetime: 12/28/2018 02:00 Labor Evaluation Frequency: NONE Monitor Mode: External Resting Tone [place]: Relaxed Heart Rate FHR Baseline Rate: 130 Monitor Mode: External US Variability: Moderate 6-25 bpm Comments: LOC DUE TO ACTIVE FETUS Datetime: 12/28/2018 01:00 Labor Evaluation Frequency: NONE Monitor Mode: External Resting Tone [place]: Relaxed Heart Rate FHR Baseline Rate: 130 Monitor Mode: External US Variability: Moderate 6-25 bpm Comments: TRACING UNREADABLE. ACTIVE FETUS. Pain Presence: None/Denies Pain Type: N/A Datetime: 12/28/2018 00:43 Stage of : Antepartum Datetime: 12/28/2018 00:00 Labor Evaluation Frequency: NONE Monitor Mode: External Resting Tone [place]: Relaxed Contraction Comments: PT DENIES CRAMPING Heart Rate FHR Baseline Rate: 130 Monitor Mode: External US Variability: Moderate 6-25 bpm Accelerations: 15X15 Decelerations: None Category: Category I Comments: PT STATES + FM Pain Presence: None/Denies Pain Type: N/A Datetime: 12/27/2018 23:00 Labor Evaluation Frequency: NONE Monitor Mode: External Resting Tone [place]: Relaxed Heart Rate FHR Baseline Rate: 130 Monitor Mode: External US Variability: Moderate 6-25 bpm Accelerations: 15X15 Decelerations: None Category: Category I Pain Presence: None/Denies Pain Type: N/A Datetime: 12/27/2018 22:46 Monitor Mode: External US Datetime: 12/27/2018 22:00 Labor Evaluation Frequency: NONE Monitor Mode: External Resting Tone [place]: Relaxed Heart Rate FHR Baseline Rate: 130 Monitor Mode: External US Variability: Moderate 6-25 bpm Accelerations: 15X15 Decelerations: None Category: Category I Pain Presence: None/Denies Pain Type: N/A Datetime: 12/27/2018 21:00 Labor Evaluation Frequency: NONE Monitor Mode: External Resting Tone [place]: Relaxed Heart Rate FHR Baseline Rate: 140 Monitor Mode: External US Variability: Moderate 6-25 bpm Accelerations: 15X15 Decelerations: None Category: Category I Pain Presence: None/Denies Pain Type: N/A Datetime: 12/27/2018 20:00 Labor Evaluation Frequency: NONE Monitor Mode: External Resting Tone [place]: Relaxed Heart Rate FHR Baseline Rate: 140 Monitor Mode: External US Variability: Moderate 6-25 bpm Accelerations: 15X15 Decelerations: None Category: Category I Pain Presence: None/Denies Pain Type: N/A Datetime: 12/27/2018 19:21 Stage of : Antepartum Assessment Type: Ongoing Assessment Maternal Assessment Level of Consciousness: Fully Conscious DTR's/Clonus: DTRs 2+; No Clonus Headache: Denies Blurred Vision: No Respiratory Effort: Unlabored; Regular Rhythm; Equal Expansion Breath Sounds, Left: Clear and Equal Breath Sounds, Right: Clear and Equal Nausea/Vomiting: Denies RUQ Epigastric Pain: Denies Lower Extremities Edema: None Degree: None Upper Extremities Edema: None Degree: None Facial Edema: None Temperature Route: Oral Fall Risk Assessment History of Falling: (0) No Secondary Diagnosis: (0) No Ambulatory Aid: (0) Bedrest/Nurse Assist IV Therapy: (0) No Gait: (0) Normal/Bedrest/Immobile Mental Status: (0) Oriented to Own Ability Fall Score: 0 Fall Risk Score Definition: No Risk: No action required Monitor Mode: External Contraction Comments: PT DENIES CRAMPING Monitor Mode: External US Comments: PT STATES + FM Pain Presence: None/Denies Pain Type: N/A Vaginal Exam Membrane Status: Intact Vaginal Bleeding: None Datetime: 12/27/2018 19:00 Labor Evaluation Frequency: 0 Monitor Mode: External Pattern: Normal: <= 5 Contractions in 10 Minutes Resting Tone [place]: Relaxed Heart Rate FHR Baseline Rate: 140 Monitor Mode: External US FHR Baseline Changes: No Baseline Change Variability: Moderate 6-25 bpm Accelerations: 10X10 Decelerations: None Category: Category I Datetime: 12/27/2018 18:00 Labor Evaluation Frequency: 0 Monitor Mode: External Pattern: Normal: <= 5 Contractions in 10 Minutes Resting Tone [place]: Relaxed Heart Rate FHR Baseline Rate: 140 Monitor Mode: External US FHR Baseline Changes: No Baseline Change Variability: Moderate 6-25 bpm Accelerations: 10X10 Decelerations: None Category: Category I Datetime: 12/27/2018 17:23 Stage of : Antepartum Temperature Route: Oral Pain Assessment Pain Scale: 0 Pain Presence: None/Denies Pain Goal: 0 Datetime: 12/27/2018 17:16 Assessment Type: Admission Assessment Vaginal Bleeding: None Maternal Assessment Level of Consciousness: Fully Conscious DTR's/Clonus: DTRs 2+; No Clonus Headache: Denies Blurred Vision: No Respiratory Effort: Unlabored; Regular Rhythm; Equal Expansion Breath Sounds, Left: Clear and Equal Breath Sounds, Right: Clear and Equal Nausea/Vomiting: Denies RUQ Epigastric Pain: Denies Lower Extremities Edema: Bilateral Lower Extremities Degree: 1+ Upper Extremities Edema: Bilateral Upper Extremities Degree: 1+ Facial Edema: None Fall Risk Assessment History of Falling: (0) No Secondary Diagnosis: (0) No Ambulatory Aid: (0) Bedrest/Nurse Assist IV Therapy: (0) No Gait: (0) Normal/Bedrest/Immobile Mental Status: (0) Oriented to Own Ability Fall Score: 0 Fall Risk Score Definition: No Risk: No action required Labor Evaluation Frequency: 0 Pattern: Normal: <= 5 Contractions in 10 Minutes Resting Tone [place]: Relaxed Heart Rate FHR Baseline Rate: 150 Variability: Moderate 6-25 bpm Accelerations: 15X15 Decelerations: None Category: Category I Pain Assessment Pain Scale: 0 Pain Presence: None/Denies Pain Type: N/A Vaginal Exam Membrane Status: Intact Datetime: 12/27/2018 16:04 Labor Evaluation Frequency: 0 Monitor Mode: External Pattern: Normal: <= 5 Contractions in 10 Minutes Heart Rate FHR Baseline Rate: 145 Monitor Mode: External US Variability: Moderate 6-25 bpm Accelerations: 15X15 Decelerations: None Category: Category I Datetime: 12/27/2018 16:00 Arrived By: Wheelchair Datetime: 12/27/2018 15:05 EGA: 25.2 Datetime: 12/27/2018 12:55 Fall Score: 0 Fall Risk Score Definition: No Risk: No action required
== END 2019-02-23 13:40 | disposition home or self-care (01) ==
LOC: OBT 10:50 → L-D 10:52 → OBT 13:40
PROVIDERS: ATTEND Specialist
DX: O14.93 Unspecified pre-eclampsia, third trimester (principal); Z3A.33 33 weeks gestation of pregnancy
CPT/HCPCS: 76815; 80053; 81003; 84560; 85025; 85384; 85610; 85730; Z7500; G0463

== ENCOUNTER 2019-03-20 05:00 | Inpatient (IN) | payer OTHER ==
[~2019-03-20] VITALS: Ht 154.9 cm; Wt 94.6 kg
[2019-03-20] MEDS ORDERED: LACTATED RINGER'S 1,000 ML IV PRN (05:41)
[2019-03-20] MEDS ORDERED: CARBOPROST 250 MCG INJ IM PRN (06:00)
[2019-03-20] MEDS ORDERED: LIDOCAINE 1% (MPF) 30 ML INJ INJ PRN (06:00)
[2019-03-20] MEDS ORDERED: BUTORPHANOL 2 MG INJ IV PRN (06:00)
[2019-03-20] MEDS ORDERED: METHYLERGONOVINE 0.2 MG INJ IM PRN (06:00)
[2019-03-20] MEDS ORDERED: MISOPROSTOL 200 MCG TAB PR PRN (06:00)
[2019-03-20] MEDS ORDERED: OXYTOCIN 30 UNITS/LR 500 ML IV SCH ×2 (06:00)
[2019-03-20] MEDS ORDERED: OXYTOCIN 30 UNITS/LR 500 ML IV PRN (06:00)
[2019-03-20 06:12] VITALS: Ht 154.9 cm; Wt 94.6 kg
[2019-03-20] MEDS: LACTATED RINGER'S 1,000 ML IV SCH ×2 (06:20→13:52)
[2019-03-20] MEDS: MISOPROSTOL 50 MCG CAPSULE PO PRN ×4 (07:55→20:14)
--- NOTE | 2019-03-20 14:01 | NSTRPT ---
NST Information Datetime Report Generated by CPN: 03/20/2019 14:00 Datetime: 03/19/2019 08:56 NST Information EGA: 37.0 Test Number: 16 Time on Monitor: 03/19/2019 09:14 Time off Monitor: 03/19/2019 09:46 NST Duration (Min): 32 Reason for NST: Chronic Hypertension Test and Monitor Explained: Monitor Explained; Test Explained; Verbalized Understanding Pulse: 97 Resp: 18 SBP: 112 DBP: 72 Test Evaluation NST Interventions: None Patient States Movement: Present Contraction Frequency: none FHR Baseline : 150 Variability: Moderate 6-25bpm Accelerations: 15X15 Decelerations: None FHR Category: Category I NST Results: Reactive Comments: PT TO U/S FELICITAS 13.6 cm cephalic Electronically Signed By E-Signature: with User ID: [id number] Datetime: 03/15/2019 09:13 NST Information EGA: 36.3 Test Number: 15 Time on Monitor: 03/15/2019 09:47 Time off Monitor: 03/15/2019 10:14 NST Duration (Min): 27 Reason for NST: Chronic Hypertension Test and Monitor Explained: Monitor Explained; Test Explained; Verbalized Understanding Pulse: 98 SBP: 109 DBP: 67 Test Evaluation NST Interventions: None Patient States Movement: Present Contraction Frequency: NONE FHR Baseline : 140 Variability: Moderate 6-25bpm Accelerations: 15X15 Decelerations: None FHR Category: Category I NST Results: Reactive Comments: PT TO U/S. FELICITAS 14.1. CEPHALIC Electronically Signed By E-Signature: with User ID: [id number] Datetime: 03/12/2019 09:37 NST Information EGA: 36.0 NST Duration (Min): 24 Datetime: 03/08/2019 08:43 NST Information EGA: 35.3 NST Duration (Min): 66 Datetime: 03/06/2019 09:25 NST Information EGA: 35.1 NST Duration (Min): 38 Datetime: 03/01/2019 08:55 NST Information EGA: 34.3 NST Duration (Min): 34 Datetime: 02/26/2019 09:58 NST Information EGA: 34.0 NST Duration (Min): 36 Datetime: 02/23/2019 10:59 NST Information EGA: 33.4 Datetime: 02/23/2019 09:12 NST Information EGA: 33.4 NST Duration (Min): 15 Datetime: 02/21/2019 13:05 NST Information EGA: 33.2 NST Duration (Min): 30 Datetime: 02/19/2019 10:18 NST Information EGA: 33.0 NST Duration (Min): 45 Datetime: 02/15/2019 09:01 NST Information EGA: 32.3 NST Duration (Min): 28 Datetime: 02/12/2019 08:56 NST Information EGA: 32.0 NST Duration (Min): 75 Datetime: 01/22/2019 08:03 NST Information EGA: 29.0 NST Duration (Min): 19
--- NOTE | 2019-03-20 22:06 | HP ---
Date/Time of Note Date/Time of Note DATE: 03/20/19 TIME: 22:04 OB - History Hx of Present Free Text/Dictation 22 G1 with EDC 04/09/2019 with IUP at 37.1 weeks. she was evaluated during due to preeclampsia with elevated BP and proteinuria. she is here for IOL. she is receiving Cytotec. she has category one NST Care: Good Care Ultrasounds: Normal mid trimester US Obstetrical Complications: Gestational Hypertension Medical Complications: None Past Family/Social History * Past Medical, Surgical, Family and Obstetric Histories reviewed from chart. OB Admission Exam Physical Exam HEENT: WNL Heart: Rhythm Normal Lungs: Clear, Equal Abdomen: WNL Extremities: Normal Reflexes: Normal Cervical Dilatation: None Last 72 hours Lab Results CBC & BMP 03/20/19 06:00 Liver Function Test 03/20/19 06:00 Alanine Aminotransferase (ALT/SGPT) 19 Albumin 3.6 Alkaline Phosphatase 170 H Aspartate Amino Transf (AST/SGOT) 27 Direct Bilirubin 0.00 Total Protein 7.3 OB Assessment/Plan Other Assessment: IUP at 37.1 weeks with preeclampsia Induction Method: per Misoprostol Protocol SALLY PALUMBO MD Mar 20, 2019 22:06
[2019-03-21] MEDS: MISOPROSTOL 50 MCG CAPSULE PO PRN ×2 (00:06→04:25)
[2019-03-21] MEDS: LACTATED RINGER'S 1,000 ML IV SCH ×4 (00:07→15:34)
[2019-03-21 09:47] VITALS: BP 127/72; PULSE 74; RESP 20
[2019-03-21] MEDS ORDERED: OXYTOCIN 30 UNITS/LR 500 ML IV SCH (11:30)
--- NOTE | 2019-03-21 14:22 | PREAC ---
Date/Time of Note Date/Time of Note DATE: 03/21/19 TIME: 14:20 Anesthesia Eval and Record Evaluation Time Pre-Procedure Interview DATE: 03/21/19 TIME: 14:20 Age 23 Sex female NPO: 8 hrs Preoperative diagnosis LABOR PAIN Planned procedure LABOR EPIDURA Past Medical History Past Medical History: Includes : : (1), Para: (0), Gestational age: (37 2/7) Surgery & Anesthesia Issues No known issue Meds Anticoagulation: No Beta Enzo within 24 hr: No Reason Beta Enzo not given: Pt. not on B-Enzo Reported Medications Vit No.130/Iron/FA ( Tablet) 1 Each Tablet, 1 EACH PO 12/27/18 Current Medications Lactated Ringer's 1,000 ml @ 125 mls/hr Q8H IV Last administered on 03/21/19at 14:01; Admin Dose 125 MLS/HR; Start 03/20/19 at 05:41 Butorphanol Tartrate (Stadol) 2 mg Q2H PRN IV .PAIN SCALE 6-10; Start 03/20/19 at 06:00 Lidocaine (Xylocaine 1% (Mpf)) 30 ml ONCE PRN INJ .EPISIOTOMY; Start 03/20/19 at 06:00 Oxytocin/Lactated Ringer's 500 ml @ 500 mls/hr ONCE POST IV ; Start 03/20/19 at 06:00 Oxytocin/Lactated Ringer's 500 ml @ 125 mls/hr POST IV ; Start 03/20/19 at 06:00 Lactated Ringer's 1,000 ml @ 2,000 mls/hr Q30M PRN IV .ANESTHESIA Last adminis tered on 03/21/19at 13:44; Admin Dose 2,000 MLS/HR; Start 03/20/19 at 05:41 Oxytocin/Lactated Ringer's 500 ml @ 0 mls/hr ONCE PRN IV .VAGINAL BLEEDING; Start 03/20/19 at 06:00 Methylergonovine Maleate (Methergine) 0.2 mg ONCE PRN IM .VAGINAL BLEEDING; Start 03/20/19 at 06:00 Carboprost Tromethamine (Hemabate) 250 mcg ONCE PRN IM .VAGINAL BLEEDING; Start 03/20/19 at 06:00 Misoprostol (Cytotec) 1,000 mcg ONCE PRN NE .VAGINAL BLEEDING; Start 03/20/19 at 06:00 Misoprostol (Cytotec 50 Mcg Capsule) 50 mcg PRN PRN PO CERVICAL RIPENING Last administered on 03/21/19at 04:25; Admin Dose 50 MCG; Start 03/20/19 at 07:00 Oxytocin/Lactated Ringer's 500 ml @ 0 mls/hr Q0M IV Last administered on 03/21/19at 11:29; Admin Dose 1 MLS/HR; Start 03/21/19 at 11:30 Meds reviewed: Yes Allergies Coded Allergies: No Known Drug Allergies (Verified Allergy, Unknown, 03/20/19) Allergies Reviewed: Yes Labs/Studies Labs Reviewed: Reviewed by anesthesiologist Result Diagram: 03/20/19 0603/20/19 0600 test: N/A Pre-procedure Exam Last vitals Vital Signs Date Temp Pulse Resp B/P (MAP) Pulse Ox O2 O2 Flow FiO2 Time Delivery Rate 03/21/19 98.0 74 20 127/72 Room Air 09:47 (90) Airway: Adequate mouth opening, Adequate thyromental dist Mallampati: Mallampati II Teeth: Normal Lung: Normal Heart: Normal ASA Physical Status ASA physical status: 2 Emergency: None Planned Anesthetic Neuraxial: Epidural Planned Pain Management Parenteral pain med Pre-operative Attestations Prior to commencing anesthesia and surgery, the patient was re-evaluated, there was verification of: *The patient's identity *The results of appropriate recent lab work and preoperative vital signs *The above evaluation not changing prior to induction *Anesthetic plan, risk benefits, alternative and complications discussed with patient/family; questions answered; patient/family understands, accepts and wishes to proceed. Dwain Lewis M.D. Mar 21, 2019 14:22
[2019-03-21] MEDS ORDERED: FENTAnyl 2MCG/ML-ROPIV 0.2% 100 ML ONE (14:41)
--- NOTE | 2019-03-21 15:10 | PAC ---
Date/Time of Note Date/Time of Note DATE: 03/21/19 TIME: 15:10 Post-Anesthesia Notes Post-Anesthesia Note Last documented vital signs Vital Signs Date Temp Pulse Resp B/P (MAP) Pulse Ox O2 O2 Flow FiO2 Time Delivery Rate 03/21/19 98.0 74 20 127/72 Room Air 09:47 (90) Activity: WNL Respiratory function: WNL Cardiovascular function: WNL Mental status: Baseline Pain reasonably controlled: Yes Hydration appropriate: Yes Nausea/Vomiting absent: Yes Dwain Lewis M.D. Mar 21, 2019 15:10
[2019-03-21] MEDS ORDERED: MINERAL OIL LIGHT 10 ML VIAL TOP PRN (17:50)
--- NOTE | 2019-03-21 19:07 | LDN ---
Date/Time of Note Date/Time of Note DATE: 03/21/19 TIME: 19:04 Delivery Summary 22 G1 with EDC 04/09/2019 with IUP at 37.2 weeks. s/p of viable female . After delivery of the head the rest of the body delivered easily. I did not apply excessive traction. Placenta delivered spontaneously and intact. evaluation of the placenta confirmed intact placenta. Uterus was firm with cervix closed on exam. 2nd degree vaginal perineal laceration was repaired with local and epidural anesthesia with 3-0 Vicryl. Placenta Delivered: Spontaneously Meconium: none Episiotomy: No Estimated blood loss: 300 Sponge & Needle done & correct: Yes All needle counts correct: Yes Any foreign bodies felt in the: No Infant Delivery Information Sex Infant Sex: female Apgars 1 Minute: 8 5 Minute: 9 Suctioning Nose & mouth suctioned at ritu: Yes Delee suction performed: Yes Umbilical Cord Umbilical cord with: 3 Vessels Cord presentations: nuchal cord Nuchal cord present X: 1 Cord Blood was obtained: Yes Mother & Baby Disposition Disposition Mom & Baby to Maternity; Good: Yes SALLY PALUMBO MD Mar 21, 2019 19:07
[2019-03-21] MEDS ORDERED: CARBOPROST 250 MCG INJ IM PRN (19:30)
[2019-03-21] MEDS ORDERED: ONDANSETRON 4 MG TAB PO PRN (19:30)
[2019-03-21] MEDS ORDERED: OXYTOCIN 30 UNITS/LR 500 ML IV PRN (19:30)
[2019-03-21] MEDS ORDERED: DIPHENHYDRAMINE 25 MG CAP PO PRN (19:30)
[2019-03-21] MEDS ORDERED: HYDROCODONE/APAP (5/325) TAB PO PRN ×2 (19:30)
[2019-03-21] MEDS ORDERED: SENNA/DOCUSATE NA (8.6MG/50MG) TAB PO PRN (19:30)
[2019-03-21] MEDS ORDERED: MISOPROSTOL 200 MCG TAB PR PRN (19:30)
[2019-03-21] MEDS ORDERED: DIPHENHYDRAMINE 50 MG INJ IV PRN (19:30)
[2019-03-21] MEDS ORDERED: LANOLIN HPA 1 PKT TOP PRN (19:30)
[2019-03-21] MEDS ORDERED: NA PHOSPHATE/BIPHOS 133 ML ENEMA PR PRN (19:30)
[2019-03-21] MEDS ORDERED: DIBUCAINE 1% 30 GM OINT TOP PRN (19:30)
[2019-03-21] MEDS ORDERED: MAGNESIUM HYDROXIDE 30ML CUP PO PRN (19:30)
[2019-03-21] MEDS ORDERED: ONDANSETRON 4 MG INJ IV PRN (19:30)
[2019-03-21 20:25] VITALS: BP 130/84; PULSE 95; RESP 19
[2019-03-21] MEDS: SENNA/DOCUSATE NA (8.6MG/50MG) TAB PO SCH (20:53)
[2019-03-21] MEDS: BENZOCAINE 20% 56 ML SPRAY TOP PRN (20:54)
[2019-03-21] MEDS: WITCH HAZEL/GLYCERIN PAD PR PRN (20:54)
[2019-03-21] MEDS: LACTATED RINGER'S 1,000 ML IV* SCH (23:36)
[2019-03-22] VITALS: BP 125/77; PULSE 95; RESP 17
[2019-03-22] MEDS: IBUPROFEN 600 MG TAB PO SCH ×5 (00:30→23:45)
[2019-03-22] MEDS: LACTATED RINGER'S 1,000 ML IV* SCH ×3 (03:08→20:54)
[2019-03-22 03:57] VITALS: BP 122/75; PULSE 90; RESP 18
--- NOTE | 2019-03-22 07:39 | DS ---
Date/Time of Note Date/Time of Note DATE: 03/22/19 TIME: 07:38 Obstetrical Discharge Record Final Diagnosis Final Diagnosis: Term delivered Vaginal Delivery Obstetrical Delivery: Spontaneous Complications Preg induced Hypertension Augmentation: Yes Induction: Yes Rupture of Membranes: No Condition on Discharge Physical Assessment Voiding: Yes Bowel Movement: Yes Breast: Soft, non-tender, Filling Fundus: Firm Abdomen and Incision: soft, not tender Episiotomy: none Calf Tenderness: No Patient Condition: Good SALLY PALUMBO MD Mar 22, 2019 07:39
[2019-03-22 08:00] VITALS: BP 122/85; PULSE 78; RESP 16
[2019-03-22] MEDS: SENNA/DOCUSATE NA (8.6MG/50MG) TAB PO SCH ×2 (08:26→21:03)
[2019-03-22 12:00] VITALS: BP 130/89; PULSE 87; RESP 18
[2019-03-22] MEDS: WITCH HAZEL/GLYCERIN PAD PR PRN (12:48)
[2019-03-22] MEDS: BENZOCAINE 20% 56 ML SPRAY TOP PRN (12:48)
[2019-03-22 16:45] VITALS: BP 139/83; PULSE 89; RESP 18
[2019-03-22 19:50] VITALS: BP 123/83; PULSE 88; RESP 19
[2019-03-23] MEDS: LACTATED RINGER'S 1,000 ML IV* SCH ×2 (03:08→11:08)
[2019-03-23 03:40] VITALS: BP 129/84; PULSE 91; RESP 19
[2019-03-23] MEDS: IBUPROFEN 600 MG TAB PO SCH ×2 (05:31→12:06)
[2019-03-23 08:00] VITALS: BP 110/74; PULSE 78; RESP 18
[2019-03-23] MEDS: SENNA/DOCUSATE NA (8.6MG/50MG) TAB PO SCH (08:47)
[2019-03-23] MEDS ORDERED: VARICELLA VACCINE LIVE/PF 1,350 UNIT/0.5 ML ML SC* ONE (09:00)
[2019-03-23] MEDS ORDERED: DIPHTH/TET/ACEL PERTUSS (ADULT) 0.5 ML VIAL IM* ONE (09:00)
[2019-03-23] MEDS ORDERED: MEASLES,MUMPS,RUBELLA VACCINE INJ SC* ONE (09:00)
--- NOTE | 2019-03-24 15:26 | DELSUM ---
Delivery Summary A-C Datetime Report Generated by CPN: 03/24/2019 15:26 DELIVERY PERSONNEL Order Taker: Ordona, May MATERNAL INFORMATION Delivery Anesthesia: Epidural Medications in Delivery: LR WITH PITOCIN 30 UNITS Delivery QBL (ml): 300 Placenta Cultured: No Maternal Complications: Other Other Maternal Complications: ELEVATED BLOOD PRESSURES LABOR SUMMARY EDC: 04/09/2019 00:00 No. Babies in Womb: 1 Attempted: No Labor Anesthesia: Epidural LABOR INFORMATION Reason for Induction: Gest. HTN/PreEclam/Eclamp Onset of Labor: 03/21/2019 11:30 Complete Dilatation: 03/21/2019 18:11 Cervical Ripening Agents: Cytotec @ Oxytocin: Induction Group B Beta Strep: Negative Antibiotics # of Doses: 0 Steroids Given: Full Course; >24Hs before Delivery Reason Steroids Not Administered: Indication MEMBRANES Membranes Rupture Method: Spontaneous Rupture of Membranes: 03/21/2019 15:01 Length of Rupture (hr): 3.60 Amniotic Fluid Color: Clear Amniotic Fluid Amount: Moderate Amniotic Fluid Odor: None STAGES OF LABOR Stage 1 hr: 6 Stage 1 min: 41 Stage 2 hr: 0 Stage 2 min: 26 Stage 3 hr: 0 Stage 3 min: 3 Total Time in Labor hr: 7 Total Time in Labor min: 10 VAGINAL DELIVERY Episiotomy: None Laceration Extension: Second Degree Laceration Type: Perineal; Vaginal Laceration Repair: Yes Initial Vag Sponge Count: 10 Final Vag Sponge Count: 10 Initial Vag Sharps Count: 1 Final Vag Sharps Count: 2 Sponge Count Correct: Yes; Vaginal Sweep Performed Sharps Count Correct: Yes BABY A INFORMATION Delivery Date/Time: 03/21/2019 18:37 Method of Delivery: Vaginal Born in Route : No : N/A Forceps: N/A Vacuum Extraction: N/A Shoulder Dystocia : No SHOULDER DYSTOCIA BABY A Infant Delivery Date/Time: 03/21/2019 18:37 PRESENTATION/POSITION BABY A Presentation: Cephalic Cephalic Presentation: Vertex Vertex Position: Right Occipital Anterior Breech Presentation: N/A PLACENTA INFORMATION BABY A Placenta Delivery Time : 03/21/2019 18:40 Placenta Method of Delivery: Spontaneous Placenta Status: Delivered SCORES BABY A Heart Rate 1 min: >100 bpm Resp Effort 1 min: Good Cry Reflex Irritability 1 min: Cough/Sneeze/Pulls Away Muscle Tone 1 min: Active Motion Color 1 min: Blue/Pale Resuscitation Effort 1 min: Tactile Stimulation SCORE 1 MIN: 8 Heart Rate 5 min: >100 bpm Resp Effort 5 min: Good Cry Reflex Irritability 5 min: Cough/Sneeze/Pulls Away Muscle Tone 5 min: Active Motion Color 5 min: Body [place], Extremit Blue Resuscitation Effort 5 min: Tactile Stimulation SCORE 5 MIN: 9 INFORMATION BABY A Gestational Age at Delivery: 37.2 Gestational Status: Early Term- 37- 38.6 Weeks Infant Outcome : Liveborn Infant Condition : Stable Sex: Female IDENTIFICATION/MEDS BABY A ID Band Number: [id number] ID Band Location: Right Leg; Left Arm Sensor Applied: Yes Sensor Number: [id number] Sensor Location : Cord Clamp Vitamin K Given : Not Given Erythromycin Given: Not Given WEIGHT/LENGTH BABY A Infant Birthweight (gm): 2860 Infant Weight (lb): 6 Weight (oz): 5 Infant Length (in): 18.00 Length (cm): 45.72 CORD INFORMATION BABY A No. 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
== END 2019-03-23 15:25 | disposition home or self-care (01) | DRG 807 ==
LOC: L-D 05:32 → PP1 03-21 20:16
PROVIDERS: ADMIT Specialist; ATTEND Specialist
PROC: 10E0XZZ Delivery of Products of Conception, External Approach (ICD-10-PCS; principal; 2019-03-21)
DX: O14.94 Unspecified pre-eclampsia, complicating childbirth (principal); Z37.0 Single live birth; O69.81X0 Labor and delivery complicated by cord around neck, without compression, not applicable or unspecified; O70.1 Second degree perineal laceration during delivery; Z3A.37 37 weeks gestation of pregnancy
CPT/HCPCS: 62322; 76815; 80053; 81001; 84560; 85025; 85610; 85730; 86592; 86850; 86900; 86901; 87340; 90716; J2590; J3010; J7120